=== PATIENT | male | born 1980 | race African-American/Black ===

== ENCOUNTER 2024-05-15 20:32 | Emergency (ER) | payer OTHER, SELFPAY ==
[2024-05-15 20:54] VITALS: BP 143/81; PULSE 71; RESP 17; TEMP 36.6; O2SAT 98; BMI 26.3
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
[2024-05-15 22:36] VITALS: BP 143/81; PULSE 71; RESP 17; TEMP 36.6; O2SAT 98
[2024-05-15 22:37] VITALS: BP 126/56; PULSE 68; RESP 16; TEMP 36.4; O2SAT 100
== END 2024-05-15 22:37 | disposition home or self-care (01) ==
PROVIDERS: Emergency Provider Emergency Medicine Emergency Medical Services
DX: S01.91XA Laceration without foreign body of unspecified part of head, initial encounter (principal); W20.8XXA Other cause of strike by thrown, projected or falling object, initial encounter; Y93.9 Activity, unspecified; Y92.9 Unspecified place or not applicable; Y99.9 Unspecified external cause status
CPT/HCPCS: 99283; 99284